=== PATIENT | female | born 1930 | race Caucasian/White ===

== ENCOUNTER 2017-11-06 09:57 | Inpatient (IN) | payer MEDICARE ==
[~2017-11-06] VITALS: Ht 162.6 cm; Wt 54.4 kg
[2017-11-06] MEDS ORDERED: SODIUM CHLORIDE 0.9% 1000ML 1,000 ML IV STA (10:12)
[2017-11-06] MEDS ORDERED: ONDANSETRON HCL INJ 2 MG/ML VIAL IV STA (10:12)
[2017-11-06] MEDS ORDERED: MORPHINE SULFATE 2 MG/ML SYR IV STA (10:12)
--- NOTE | 2017-11-06 11:04 | Diagnostic Imaging Report ---
PROCEDURE: A single AP view of the chest. COMPARISON: None. INDICATIONS: FALL, HIP FX FINDINGS: Lines/tubes: None. Lungs: The lungs are poorly inflated with bibasilar opacities likely representing atelectasis. There is no evidence of pulmonary edema. Pleura: There is no pleural effusion or pneumothorax. Heart and mediastinum: Aortic arch calcifications. The heart and the mediastinum are otherwise unremarkable. Bones: Age-indeterminate compression deformity of a lower thoracic vertebral body. IMPRESSION: 1. No acute cardiopulmonary disease. 2. Age-indeterminate compression deformity of a lower thoracic vertebral body. Dictated by: Eusebio Morales M.D. on 11/06/2017 at 11:07 Electronically approved by: Eusebio Morales M.D. on 11/06/2017 at 11:07
--- NOTE | 2017-11-06 11:06 | Diagnostic Imaging Report ---
PROCEDURE:HIP LEFT 2-3 VW (+/- PELVIS) COMPARISON:None. INDICATIONS:FALL, LEFT HIP FRACTURE FINDINGS: BONES: Angulated intertrochanteric fracture of the left femur. SOFT TISSUES:Negative. OTHER:Vascular calcifications. CONCLUSION: Angulated intertrochanteric fracture of the left femur. Dictated by: Eusebio Morales M.D. on 11/06/2017 at 11:09 Electronically approved by: Eusebio Morales M.D. on 11/06/2017 at 11:09
--- NOTE | 2017-11-06 11:09 | Diagnostic Imaging Report ---
PROCEDURE:FEMUR 2 VIEWS MINIMUM LEFT COMPARISON:None. INDICATIONS:HIP FRACTURE FINDINGS: Angulated comminuted intratrochanteric fracture of the left femur. Evaluation of the distal femur and knee are limited secondary to limited patient mobility. The bones are well-mineralized. The soft-tissues are unremarkable. CONCLUSION: Angulated comminuted intratrochanteric fracture of the left femur. Limited evaluation of the distal femur and knee secondary to limited patient mobility. Recommend correlation with focal point tenderness, and if indicated, dedicated knee radiographs when clinically feasible. Dictated by: Eusebio Morales M.D. on 11/06/2017 at 11:12 Electronically approved by: Eusebio Morales M.D. on 11/06/2017 at 11:12
[2017-11-06 11:20] LABS: BASOPHILS % 0.2 % (0.0-1.0); EOSINOPHILS % 0.1 % (0.0-6.0); HEMATOCRIT 36.7 % (34.2-44.1); HEMOGLOBIN 12.3 g/dL (12.0-16.0); LYMPHOCYTES # (AUTO) 1.1 (1.0-3.2); LYMPHOCYTES % 7.1 % (18.0-39.1); MEAN CORPUSCULAR HGB CONC 33.5 g/dL (31-35); MEAN CORPUSCULAR VOLUME 89.5 fL (81-99); MONOCYTES # (AUTO) 1.8 (0.2-0.8); MONOCYTES % 11.6 % (4.4-11.3); NEUTROPHILS # (AUTO) 12.3 (2.1-6.9); NEUTROPHILS % 80.4 % (38.7-80.0); PLATELET COUNT 285 x10e3/uL (140-360); RED CELL DISTRIBUTION WIDTH 13.3 % (11.7-14.4)
[2017-11-06 11:24] LABS: INR 1.15; PROTHROMBIN TIME 13.8 seconds (11.9-14.5)
[2017-11-06 11:25] LABS: PARTIAL THROMBOPLASTIN TIME 26.3 seconds (23.8-35.5)
[2017-11-06 11:35] LABS: ALANINE AMINOTRANSFERASE 19 IU/L (0-55); ALBUMIN 3.3 g/dL (3.5-5.0); ALBUMIN/GLOBULIN RATIO 0.8 (0.8-2.0); ALKALINE PHOSPHATASE 71 IU/L (40-150); BLOOD UREA NITROGEN 24 mg/dL (7-26); BUN/CREATININE RATIO 32 (6-25); CALCIUM 9.8 mg/dL (8.4-10.2); CARBON DIOXIDE 26 mmol/L (22-29); CHLORIDE 102 mmol/L (98-107); CREATINE KINASE 372 IU/L (29-168); CREATININE, SERUM 0.75 mg/dL (0.57-1.11); EST GLOMERULAR FILTRATION RATE > 60 ML/MIN (60-); GLUCOSE 109 mg/dL (74-118); SODIUM 139 mmol/L (136-145)
[2017-11-06] MEDS ORDERED: MORPHINE SULFATE 2 MG/ML SYR IV PRN (12:00)
[2017-11-06] MEDS ORDERED: SODIUM CHLORIDE FLUSH 10 ML SYR INJ PRN (12:00)
[2017-11-06] MEDS ORDERED: ONDANSETRON HCL INJ 2 MG/ML VIAL IV PRN (12:00)
[2017-11-06] MEDS ORDERED: D3-5050000 UNIT PO (12:20)
[2017-11-06] MEDS ORDERED: AMLODIPINE BESYL5 MG PO (12:20)
[2017-11-06] MEDS ORDERED: DILTIAZEM ER180 MG PO (12:20)
[2017-11-06] MEDS ORDERED: SIMVASTATIN40 MG PO (12:20)
[2017-11-06 12:31] LABS: BILIRUBIN,URINE NEGATIVE (NEGATIVE); CLARITY,URINE TURBID (CLEAR); COLOR,URINE YELLOW (YELLOW); KETONES,URINE NEGATIVE (NEGATIVE); LEUKOCYTE ESTERASE ,URINE 2+ (NEGATIVE); NITRITE,URINE POSITIVE (NEGATIVE); PROTEIN,URINE DIPSTICK 2+ (NEGATIVE); URINE UROBILINOGEN 0.2 mg/dL (0.2 - 1)
[2017-11-06 12:40] LABS: LYMPHOCYTES % (MANUAL) 8 % (19-48); MONOCYTES % (MANUAL) 7 % (3.4-9.0); NEUTROPHILS % (MANUAL) 85 % (40-74)
[2017-11-06 12:41] LABS: PLATELET ESTIMATE ADEQUATE; PLATELET MORPHOLOGY COMMENT NORMAL; RBC MORPHOLOGY COMMENT NORMAL
[2017-11-06 12:45] LABS: WBC,URINE (MAN) >50 /HPF (0-5)
[2017-11-06 12:46] LABS: BACTERIA,URINE FEW /HPF; EPITHELIAL CELLS,URINE FEW /LPF; TRANSITIONAL EPI CELLS,URINE FEW
[2017-11-06 13:39] VITALS: BP 134/65
[2017-11-06 13:40] VITALS: BP 134/65
[2017-11-06 16:20] VITALS: BP 102/55
[2017-11-06] MEDS ORDERED: METOPROLOL TARTRATE INJ 1 MG/ML VIAL IV PRN (18:15)
[2017-11-06] MEDS ORDERED: HYDRALAZINE HCL 20 MG/ML VIAL IV PRN (18:15)
[2017-11-06] MEDS ORDERED: ACETAMINOPHEN 325 MG TAB PO PRN (18:15)
[2017-11-06] MEDS: CEFTRIAXONE SOD 1 GM VIAL IV SCH (19:35)
[2017-11-06 20:00] VITALS: BP 106/60
--- NOTE | 2017-11-06 20:09 | Consultation ---
DATE OF CONSULTATION: November 06, 2017 CHIEF COMPLAINT: Left hip pain. HISTORY OF PRESENT ILLNESS: The patient is an 87-year-old lady who lives alone at home. She was walking in her hallway and tripped over her feet 3 days ago. Her daughter found her later that morning. They called EMS. EMS came and felt that she had strained her hip. They told her to give it some time. She was unable to walk. She went to the doctor the next day. She was sent for x-rays. This took a little time. She was called this morning and told she had a hip fracture. She was brought in by EMS. She has been unable to walk since the time of the initial fall. PAST MEDICAL HISTORY: She describes hypertension and an irregular heart beat. PAST SURGERIES: Include cataracts and an appendectomy. ALLERGIES: NONE. MEDICATIONS: See list. SOCIAL HISTORY: She does not smoke or drink. She walks with either a cane or a walker. She has 2 daughters and a son who live in the area. She is . PHYSICAL EXAMINATION: She is awake, alert and very pleasant. Her left lower extremity is shortened and internally rotated. She has pain with any attempted passive range of motion. Neurovascular exam is normal. There is some swelling but no puncture wounds or abrasions around the left hip. LABORATORY STUDIES: X-rays show an intertrochanteric fracture of her left hip. IMPRESSION: Left hip fracture. PLAN: The findings and options were discussed with the patient and her daughter. She was previously ambulatory. The risks and benefits of surgical stabilization with intramedullary hip screw were explained. The recovery was discussed. The possibility of rehab or group home facility was explored. She states she understands all of this. She consents to proceed with surgery. We will get this on the schedule for tomorrow. Thank you for the consultation. Job#: [id number]
[2017-11-06 20:56] VITALS: BP 106/60
[2017-11-07] VITALS (7 sets, daily range): BP systolic 99–126; BP diastolic 52–60
[2017-11-07 03:04] LABS: BASOPHILS % 0.3 % (0.0-1.0); EOSINOPHILS % 0.1 % (0.0-6.0); HEMATOCRIT 37.8 % (34.2-44.1); HEMOGLOBIN 12.6 g/dL (12.0-16.0); LYMPHOCYTES # (AUTO) 1.2 (1.0-3.2); LYMPHOCYTES % 8.7 % (18.0-39.1); MEAN CORPUSCULAR HEMOGLOBIN 30.2 pg (28-32); MEAN CORPUSCULAR HGB CONC 33.3 g/dL (31-35); MEAN CORPUSCULAR VOLUME 90.6 fL (81-99); MONOCYTES # (AUTO) 1.6 (0.2-0.8); MONOCYTES % 11.5 % (4.4-11.3); NEUTROPHILS # (AUTO) 11.2 (2.1-6.9); NEUTROPHILS % 78.8 % (38.7-80.0); PLATELET COUNT 297 x10e3/uL (140-360); RED BLOOD COUNT 4.17 x10e6/uL (3.6-5.1); RED CELL DISTRIBUTION WIDTH 13.2 % (11.7-14.4)
[2017-11-07 03:27] LABS: ANION GAP 12.2 mmol/L (8-16); BLOOD UREA NITROGEN 26 mg/dL (7-26); BUN/CREATININE RATIO 39 (6-25); CALCIUM 9.4 mg/dL (8.4-10.2); CARBON DIOXIDE 26 mmol/L (22-29); CHLORIDE 105 mmol/L (98-107); CHOL/HDL RATIO 2.6 (3.0-3.6); CHOLESTEROL 143 MD/DL (0-199); CREATININE, SERUM 0.67 mg/dL (0.57-1.11); EST GLOMERULAR FILTRATION RATE > 60 ML/MIN (60-); GLUCOSE 94 mg/dL (74-118); HDL CHOLESTEROL 55 MG/DL (40-60); LDL CHOLESTEROL 77 MG/DL (60-130); MAGNESIUM 1.7 MG/DL (1.3-2.1); POTASSIUM 4.2 mmol/L (3.5-5.1); SODIUM 139 mmol/L (136-145); TRIGLYCERIDES 54 MG/DL (0-149)
[2017-11-07 03:48] LABS: FREE T4 (FREE THYROXINE) 1.01 ng/dL (0.9-1.8); THYROID STIMULATING HORMONE 0.689 uIU/mL (0.350-4.940)
[2017-11-07 03:52] LABS: B-TYPE NATRIURETIC PEPTIDE2 91.4 pg/mL (0-100)
[2017-11-07 04:16] LABS: LYMPHOCYTES % (MANUAL) 13 % (19-48); MONOCYTES % (MANUAL) 7 % (3.4-9.0); NEUTROPHILS % (MANUAL) 80 % (40-74); PLATELET ESTIMATE ADEQUATE; PLATELET MORPHOLOGY COMMENT NORMAL; RBC MORPHOLOGY COMMENT NORMAL
[2017-11-07] MEDS: FAMOTIDINE 20 MG TAB PO SCH ×2 (07:30→16:32)
[2017-11-07] MEDS ORDERED: CEFAZOLIN SOD 2 GM in WATER STERILE 10ML VIAL 10 ML IV ONE (07:45)
[2017-11-07] MEDS: ENOXAPARIN SOD INJ 40 MG/0.4 ML SYR SC SCH (08:29)
[2017-11-07] MEDS ORDERED: MUPIROCIN 2% OINT 22 GM TUBE ONE (11:48)
[2017-11-07] MEDS ORDERED: ACETAMINOPHEN 650 MG SUPP PR PRN (13:15)
[2017-11-07] MEDS ORDERED: ONDANSETRON HCL INJ 2 MG/ML VIAL IV PRN (13:15)
[2017-11-07] MEDS ORDERED: DIPHENHYDRAMINE HCL INJ 50 MG/ML VIAL IM/IV PRN (13:15)
[2017-11-07] MEDS ORDERED: HYDROCODONE/APAP 5MG-325MG TAB PO PRN (13:15)
[2017-11-07] MEDS ORDERED: PROMETHAZINE HCL (IM) 25 MG/ML VIAL INJ PRN (13:15)
[2017-11-07] MEDS ORDERED: ZOLPIDEM TARTRATE 5 MG TAB PO PRN (13:15)
[2017-11-07] MEDS ORDERED: DOCUSATE SODIUM 100 MG CAP PO PRN (13:15)
[2017-11-07] MEDS ORDERED: CEFAZOLIN SOD 1 GM/NS 50ML 50 ML IV SCH (14:00)
[2017-11-07] MEDS: SODIUM CHLORIDE 0.9% 1000ML 1,000 ML IV SCH ×2 (14:36→23:00)
[2017-11-07] MEDS: KETOROLAC TROMETHAMINE 30 MG/ML VIAL IV PRN (14:37)
--- NOTE | 2017-11-07 15:06 | Operative Report ---
DATE OF PROCEDURE: November 07, 2017 IRON WORKER FOREMAN: Jm Maldonado PA-C The patient was brought to the operating room for induction of anesthesia. Throughout this case, my PA's assistance was necessary for retraction of soft tissue and positioning of the extremity. This allows for efficient and technically successful execution of the operation and is considered medically necessary. PREOPERATIVE DIAGNOSIS: Left hip intertrochanteric fracture. POSTOPERATIVE DIAGNOSIS: Left hip intertrochanteric fracture. PROCEDURE: Open reduction and internal fixation left hip with intramedullary hip screw. INDICATIONS: The patient is an 87-year-old lady who fell and sustained a comminuted left intertrochanteric fracture. She is a limited ambulator with either a walker or a cane. The findings and options have been discussed with the patient and her daughters. We plan on surgical fixation. The risks and benefits were explained. She stated she understood and wished to proceed. DESCRIPTION OF PROCEDURE: The patient was brought to the operating room and placed under general anesthetic. She received prophylactic antibiotics. She was positioned on the fracture table in gentle traction. A C-arm image intensifier was used to confirm satisfactory reduction. Her left hip was prepped and draped in a sterile manner. A preoperative time out was performed. A small incision was made proximal to the tip of the greater trochanter. A curved awl was used to place a guide pin down the femoral canal. This was measured at 360 mm. This was over-reamed to 12.5 mm. This created endosteal clatter. A [employer] intramedullary hip screw measuring 11 mm x 360 mm was then placed down the femoral canal. This was locked proximally with a 95 mm lag screw. A derotational screw was placed. Final x-rays showed anatomic reduction and good positioning of the hardware. The wounds were irrigated and closed with subcuticular Vicryl, Mastisol and Steri-Strips. Blood loss was less than 20 mL. At the end of the procedure, all needle and sponge counts were correct. Job#: [id number] EV
[2017-11-07] MEDS ORDERED: DEXAMETHASONE SOD PHOS INJ 4 MG/ML VIAL ONE (16:12)
[2017-11-07] MEDS ORDERED: ONDANSETRON HCL INJ 2 MG/ML VIAL ONE (16:12)
[2017-11-07] MEDS ORDERED: PROPOFOL IV EMULSION 10 MG/ML 20 ML VIAL ONE (16:12)
[2017-11-07] MEDS ORDERED: LIDOCAINE HCL 2% LOCAL INJ 5 ML SDV VIAL INJ ONE (16:12)
[2017-11-07] MEDS ORDERED: ACETAMINOPHEN 1000 MG/100 ML IV ONE (16:12)
[2017-11-07] MEDS ORDERED: SEVOFLURANE INHAL SOLN 250 ML PEN BTL ONE (16:12)
[2017-11-07] MEDS: CELECOXIB 100 MG CAP PO SCH (16:32)
[2017-11-07] MEDS: ASPIRIN 325 MG TAB PO SCH (16:32)
[2017-11-07] MEDS: CEFAZOLIN SOD 1 GM VIAL IV SCH (16:32)
[2017-11-07] MEDS: HYDROCODONE/APAP 7.5MG-325MG 1 EA TAB PO PRN (16:33)
[2017-11-07] MEDS ORDERED: FENTANYL CITRATE/PF 100MCG/2 ML INJ ONE (17:54)
[2017-11-07] MEDS: CEFTRIAXONE SOD 1 GM VIAL IV SCH (18:11)
[2017-11-08] VITALS (7 sets, daily range): BP systolic 106–135; BP diastolic 57–62
[2017-11-08] MEDS: CEFAZOLIN SOD 1 GM VIAL IV SCH ×2 (00:53→09:26)
[2017-11-08 03:11] LABS: BASOPHILS % 0.1 % (0.0-1.0); HEMOGLOBIN 10.7 g/dL (12.0-16.0); LYMPHOCYTES # (AUTO) 0.7 (1.0-3.2); LYMPHOCYTES % 4.2 % (18.0-39.1); MEAN CORPUSCULAR HEMOGLOBIN 30.3 pg (28-32); MEAN CORPUSCULAR HGB CONC 33.4 g/dL (31-35); MEAN CORPUSCULAR VOLUME 90.7 fL (81-99); MONOCYTES # (AUTO) 1.2 (0.2-0.8); MONOCYTES % 7.4 % (4.4-11.3); NEUTROPHILS # (AUTO) 14.7 (2.1-6.9); NEUTROPHILS % 87.8 % (38.7-80.0); PLATELET COUNT 272 x10e3/uL (140-360); RED BLOOD COUNT 3.53 x10e6/uL (3.6-5.1); RED CELL DISTRIBUTION WIDTH 13.2 % (11.7-14.4)
[2017-11-08 03:28] LABS: ANION GAP 12.2 mmol/L (8-16); BLOOD UREA NITROGEN 31 mg/dL (7-26); BUN/CREATININE RATIO 46 (6-25); CALCIUM 9.2 mg/dL (8.4-10.2); CARBON DIOXIDE 25 mmol/L (22-29); CHLORIDE 107 mmol/L (98-107); CREATININE, SERUM 0.68 mg/dL (0.57-1.11); EST GLOMERULAR FILTRATION RATE > 60 ML/MIN (60-); GLUCOSE 106 mg/dL (74-118); MAGNESIUM 1.6 MG/DL (1.3-2.1); POTASSIUM 4.2 mmol/L (3.5-5.1); SODIUM 140 mmol/L (136-145)
[2017-11-08] MEDS: KETOROLAC TROMETHAMINE 30 MG/ML VIAL IV PRN (06:00)
[2017-11-08] MEDS: FAMOTIDINE 20 MG TAB PO SCH ×2 (09:26→17:46)
[2017-11-08] MEDS: CELECOXIB 100 MG CAP PO SCH ×2 (09:26→17:46)
[2017-11-08] MEDS: ASPIRIN 325 MG TAB PO SCH ×2 (09:26→17:46)
[2017-11-08] MEDS: ENOXAPARIN SOD INJ 40 MG/0.4 ML SYR SC SCH (09:26)
[2017-11-08] MEDS: HYDROCODONE/APAP 7.5MG-325MG 1 EA TAB PO PRN (09:36)
[2017-11-08] MEDS ORDERED: ACETAMINOPHEN 1000 MG/100 ML IV PRN (13:15)
[2017-11-08] MEDS: CEFTRIAXONE SOD 1 GM VIAL IV SCH (17:46)
[2017-11-09] VITALS (8 sets, daily range): BP systolic 103–139; BP diastolic 54–66
[2017-11-09 03:36] LABS: BASOPHILS % 0.3 % (0.0-1.0); EOSINOPHILS # (AUTO) 0.4 (0.0-0.4); HEMATOCRIT 32.7 % (34.2-44.1); HEMOGLOBIN 10.9 g/dL (12.0-16.0); LYMPHOCYTES # (AUTO) 1.5 (1.0-3.2); LYMPHOCYTES % 12.1 % (18.0-39.1); MEAN CORPUSCULAR HEMOGLOBIN 29.8 pg (28-32); MEAN CORPUSCULAR HGB CONC 33.3 g/dL (31-35); MEAN CORPUSCULAR VOLUME 89.3 fL (81-99); MONOCYTES # (AUTO) 1.1 (0.2-0.8); MONOCYTES % 8.8 % (4.4-11.3); NEUTROPHILS % 75.1 % (38.7-80.0); PLATELET COUNT 286 x10e3/uL (140-360); RED BLOOD COUNT 3.66 x10e6/uL (3.6-5.1)
[2017-11-09 04:46] LABS: ANION GAP 11.6 mmol/L (8-16); BLOOD UREA NITROGEN 24 mg/dL (7-26); BUN/CREATININE RATIO 43 (6-25); CALCIUM 8.6 mg/dL (8.4-10.2); CARBON DIOXIDE 25 mmol/L (22-29); CHLORIDE 106 mmol/L (98-107); CREATININE, SERUM 0.56 mg/dL (0.57-1.11); EST GLOMERULAR FILTRATION RATE > 60 ML/MIN (60-); GLUCOSE 89 mg/dL (74-118); MAGNESIUM 1.5 MG/DL (1.3-2.1); POTASSIUM 3.6 mmol/L (3.5-5.1); SODIUM 139 mmol/L (136-145)
[2017-11-09] MEDS: FAMOTIDINE 20 MG TAB PO SCH ×2 (07:48→17:04)
[2017-11-09] MEDS: ENOXAPARIN SOD INJ 40 MG/0.4 ML SYR SC SCH (08:04)
[2017-11-09] MEDS: ASPIRIN 325 MG TAB PO SCH ×2 (08:04→17:04)
[2017-11-09] MEDS: CELECOXIB 100 MG CAP PO SCH ×2 (08:04→17:04)
[2017-11-09] MEDS: FERROUS SULFATE 325 MG TAB PO SCH ×2 (08:43→17:04)
[2017-11-09] MEDS: ASCORBIC ACID 500 MG TAB PO SCH ×2 (08:46→17:04)
[2017-11-09] MEDS: CEFTRIAXONE SOD 1 GM VIAL IV SCH (18:10)
[2017-11-10] VITALS: BP 131/58
[2017-11-10 03:41] LABS: BASOPHILS # (AUTO) 0.1 (0.0-0.1); BASOPHILS % 0.5 % (0.0-1.0); EOSINOPHILS # (AUTO) 0.6 (0.0-0.4); EOSINOPHILS % 6.3 % (0.0-6.0); HEMATOCRIT 35.5 % (34.2-44.1); HEMOGLOBIN 11.8 g/dL (12.0-16.0); LYMPHOCYTES # (AUTO) 1.8 (1.0-3.2); MEAN CORPUSCULAR HEMOGLOBIN 29.6 pg (28-32); MEAN CORPUSCULAR HGB CONC 33.2 g/dL (31-35); MEAN CORPUSCULAR VOLUME 89.2 fL (81-99); MONOCYTES # (AUTO) 0.9 (0.2-0.8); MONOCYTES % 8.5 % (4.4-11.3); NEUTROPHILS # (AUTO) 6.6 (2.1-6.9); NEUTROPHILS % 65.6 % (38.7-80.0); PLATELET COUNT 276 x10e3/uL (140-360); RED BLOOD COUNT 3.98 x10e6/uL (3.6-5.1)
[2017-11-10 04:00] VITALS: BP 137/69
[2017-11-10 04:02] LABS: ANION GAP 10.5 mmol/L (8-16); BLOOD UREA NITROGEN 14 mg/dL (7-26); BUN/CREATININE RATIO 26 (6-25); CALCIUM 8.9 mg/dL (8.4-10.2); CARBON DIOXIDE 28 mmol/L (22-29); CHLORIDE 103 mmol/L (98-107); CREATININE, SERUM 0.53 mg/dL (0.57-1.11); EST GLOMERULAR FILTRATION RATE > 60 ML/MIN (60-); GLUCOSE 89 mg/dL (74-118); MAGNESIUM 1.6 MG/DL (1.3-2.1); POTASSIUM 3.5 mmol/L (3.5-5.1); SODIUM 138 mmol/L (136-145)
[2017-11-10] MEDS: FAMOTIDINE 20 MG TAB PO SCH ×2 (08:30→16:35)
[2017-11-10] MEDS: ENOXAPARIN SOD INJ 40 MG/0.4 ML SYR SC SCH (08:35)
[2017-11-10] MEDS: ASPIRIN 325 MG TAB PO SCH ×2 (08:35→16:45)
[2017-11-10] MEDS: ASCORBIC ACID 500 MG TAB PO SCH ×2 (08:35→16:46)
[2017-11-10] MEDS: FERROUS SULFATE 325 MG TAB PO SCH ×2 (08:35→16:45)
[2017-11-10] MEDS: CELECOXIB 100 MG CAP PO SCH ×2 (08:35→16:45)
[2017-11-10 10:47] VITALS: BP 137/69
[2017-11-10 16:41] VITALS: BP 108/58
[2017-11-10] MEDS: CEFTRIAXONE SOD 1 GM VIAL IV SCH (18:05)
[2017-11-10 20:00] VITALS: BP 111/53
[2017-11-10 22:54] VITALS: BP 126/58
[2017-11-11] VITALS (7 sets, daily range): BP systolic 111–174; BP diastolic 57–91
[2017-11-11 04:05] LABS: BASOPHILS # (AUTO) 0.1 (0.0-0.1); BASOPHILS % 0.6 % (0.0-1.0); EOSINOPHILS # (AUTO) 0.7 (0.0-0.4); EOSINOPHILS % 7.8 % (0.0-6.0); HEMATOCRIT 33.5 % (34.2-44.1); HEMOGLOBIN 11.2 g/dL (12.0-16.0); LYMPHOCYTES % 21.9 % (18.0-39.1); MEAN CORPUSCULAR HEMOGLOBIN 29.9 pg (28-32); MEAN CORPUSCULAR HGB CONC 33.4 g/dL (31-35); MEAN CORPUSCULAR VOLUME 89.3 fL (81-99); MONOCYTES # (AUTO) 0.8 (0.2-0.8); MONOCYTES % 9.3 % (4.4-11.3); NEUTROPHILS # (AUTO) 5.3 (2.1-6.9); NEUTROPHILS % 58.7 % (38.7-80.0); PLATELET COUNT 329 x10e3/uL (140-360); RED BLOOD COUNT 3.75 x10e6/uL (3.6-5.1); RED CELL DISTRIBUTION WIDTH 13.2 % (11.7-14.4)
[2017-11-11 04:28] LABS: ANION GAP 11.3 mmol/L (8-16); BLOOD UREA NITROGEN 16 mg/dL (7-26); BUN/CREATININE RATIO 29 (6-25); CALCIUM 8.4 mg/dL (8.4-10.2); CARBON DIOXIDE 28 mmol/L (22-29); CHLORIDE 107 mmol/L (98-107); CREATININE, SERUM 0.55 mg/dL (0.57-1.11); EST GLOMERULAR FILTRATION RATE > 60 ML/MIN (60-); GLUCOSE 95 mg/dL (74-118); MAGNESIUM 1.8 MG/DL (1.3-2.1); POTASSIUM 3.3 mmol/L (3.5-5.1); SODIUM 143 mmol/L (136-145)
[2017-11-11] MEDS ORDERED: POTASSIUM CHLORIDE 20 MEQ TAB CR PO STA (08:00)
[2017-11-11] MEDS ORDERED: NON-FORMULARY MEDICATION (Diltiazem Hcl (Diltiazem Er) 180 MG) PO SCH (09:00)
[2017-11-11] MEDS: FERROUS SULFATE 325 MG TAB PO SCH ×2 (09:04→17:12)
[2017-11-11] MEDS: FAMOTIDINE 20 MG TAB PO SCH ×2 (09:04→17:06)
[2017-11-11] MEDS: AMLODIPINE BESYLATE 5 MG TAB PO SCH ×2 (09:05→17:12)
[2017-11-11] MEDS: ASPIRIN 325 MG TAB PO SCH ×2 (09:05→17:12)
[2017-11-11] MEDS: DILTIAZEM HCL 180 MG CAP CD PO SCH (09:05)
[2017-11-11] MEDS: ASCORBIC ACID 500 MG TAB PO SCH ×2 (09:06→17:12)
[2017-11-11] MEDS: ENOXAPARIN SOD INJ 40 MG/0.4 ML SYR SC SCH (09:06)
[2017-11-11] MEDS: CELECOXIB 200 MG CAP PO SCH (17:12)
[2017-11-11] MEDS: CEFTRIAXONE SOD 1 GM VIAL IV SCH (17:20)
[2017-11-11] MEDS ORDERED: SIMVASTATIN 40 MG TAB PO SCH (21:00)
[2017-11-12] VITALS: BP 110/79
[2017-11-12 03:52] LABS: BASOPHILS # (AUTO) 0.1 (0.0-0.1); BASOPHILS % 1.2 % (0.0-1.0); EOSINOPHILS # (AUTO) 0.9 (0.0-0.4); EOSINOPHILS % 8.6 % (0.0-6.0); HEMATOCRIT 38.6 % (34.2-44.1); HEMOGLOBIN 12.1 g/dL (12.0-16.0); LYMPHOCYTES # (AUTO) 2.5 (1.0-3.2); LYMPHOCYTES % 23.4 % (18.0-39.1); MEAN CORPUSCULAR HEMOGLOBIN 29.7 pg (28-32); MEAN CORPUSCULAR HGB CONC 31.3 g/dL (31-35); MEAN CORPUSCULAR VOLUME 94.8 fL (81-99); NEUTROPHILS # (AUTO) 5.9 (2.1-6.9); NEUTROPHILS % 55.5 % (38.7-80.0); PLATELET COUNT 369 x10e3/uL (140-360); RED BLOOD COUNT 4.07 x10e6/uL (3.6-5.1); RED CELL DISTRIBUTION WIDTH 13.6 % (11.7-14.4)
[2017-11-12 04:00] VITALS: BP 124/56
[2017-11-12 04:01] LABS: ANION GAP 13.2 mmol/L (8-16); BLOOD UREA NITROGEN 18 mg/dL (7-26); BUN/CREATININE RATIO 27 (6-25); CALCIUM 8.9 mg/dL (8.4-10.2); CARBON DIOXIDE 27 mmol/L (22-29); CHLORIDE 106 mmol/L (98-107); CREATININE, SERUM 0.66 mg/dL (0.57-1.11); EST GLOMERULAR FILTRATION RATE > 60 ML/MIN (60-); GLUCOSE 93 mg/dL (74-118); MAGNESIUM 1.8 MG/DL (1.3-2.1); POTASSIUM 4.2 mmol/L (3.5-5.1); SODIUM 142 mmol/L (136-145)
[2017-11-12 05:51] LABS: EOSINOPHILS % (MANUAL) 5 % (0-7); LYMPHOCYTES % (MANUAL) 23 % (19-48); MONOCYTES % (MANUAL) 3 % (3.4-9.0); MYELOCYTES % (MANUAL) 1 % (0-0); NEUTROPHILS % (MANUAL) 68 % (40-74); PLATELET ESTIMATE SLIGHTLY INCREASED; RBC MORPHOLOGY COMMENT NORMAL
[2017-11-12 07:58] VITALS: BP 134/64
[2017-11-12] MEDS: CELECOXIB 200 MG CAP PO SCH ×2 (08:25→16:51)
[2017-11-12] MEDS: FERROUS SULFATE 325 MG TAB PO SCH ×2 (08:25→16:51)
[2017-11-12] MEDS: FAMOTIDINE 20 MG TAB PO SCH ×2 (08:25→16:10)
[2017-11-12] MEDS: ENOXAPARIN SOD INJ 40 MG/0.4 ML SYR SC SCH (08:26)
[2017-11-12] MEDS: ASPIRIN 325 MG TAB PO SCH ×2 (08:26→16:51)
[2017-11-12] MEDS: ASCORBIC ACID 500 MG TAB PO SCH ×2 (08:26→16:51)
[2017-11-12] MEDS: DILTIAZEM HCL 180 MG CAP CD PO SCH (08:26)
[2017-11-12] MEDS: AMLODIPINE BESYLATE 5 MG TAB PO SCH ×2 (08:26→16:51)
[2017-11-12 09:29] VITALS: BP 134/64
[2017-11-12 12:02] VITALS: BP 124/62
[2017-11-12] MEDS ORDERED: FERROUS SULFAT325 MG PO (16:19)
[2017-11-12] MEDS ORDERED: COLACE100 M1 PO (16:19)
[2017-11-12] MEDS ORDERED: ASCORBIC ACID500 MG PO (16:19)
[2017-11-12] MEDS ORDERED: Celecoxib PO (16:19)
[2017-11-12] MEDS ORDERED: AMBIEN5 MG PO (16:19)
[2017-11-12 16:35] VITALS: BP 112/58
[2017-11-12] MEDS: CEFTRIAXONE SOD 1 GM VIAL IV SCH (16:51)
--- NOTE | 2017-11-12 16:55 | Discharge Summary ---
ADMISSION DIAGNOSES 1. Left femur fracture status post fall. 2. Urinary tract infection. 3. Frequent falls. 4. Heart arrhythmia. DISCHARGE DIAGNOSES 1. Left femur fracture status post fall. 2. Urinary tract infection. 3. Frequent falls. 4. Heart arrhythmia. 5. Hypokalemia. 6. Tachycardia. HISTORY: Patient has a history of hypertension, hyperlipidemia and heart arrhythmia, surgical history of appendectomy, bilateral cataract surgery and bilateral breast lumpectomy. HOSPITAL COURSE: An 87-year-old female says her knees gave out and she fell on Saturday. She was unable to get up until her daughter came over and helped her. She denies dizziness and confusion. The EMS were called but did not transport to the hospital. On Saturday the pain and weakness increased. Her daughter then arranged transport to the hospital. She admits to frequent falling. On admission patient had a chest x-ray which showed no acute disease, hip x-ray that showed an intertrochanteric fracture of the left femur. Patient also had a urine culture that came back positive for E. coli. Patient started on Rocephin. On November 07, 2017, patient had an ORIF of the left hip. Due to frequent falls, patient and her daughter wanted transfer to a SNF upon discharge. Patient recovered well from surgery, working well with physical therapy. Pain is controlled with p.o. medications. Patient will discharge to [facility] for further PT. On day of discharge, WBC 10.68, hemoglobin 12.1, hematocrit 38.6, platelet of 369. Sodium 142, potassium 4.2, GFR of over 60, creatinine of 0.66. Vital signs stable, patient afebrile. Both patient and daughter understand discharge plan and agree. Dictated by: Nancy Lopez NP AMY MCLEOD MD Job#: [id number] KARISHMA
== END 2017-11-12 18:27 | disposition other institution (70) | DRG 481 ==
LOC: ER 09:57 → ERHOLD 12:23 → MED/SURG 13:01
PROVIDERS: ADMIT Internal Medicine; ATTEND Internal Medicine
PROC: BQ14ZZZ Fluoroscopy of Left Femur (ICD-10-PCS; 2017-11-07)
PROC: 0QS706Z Reposition Left Upper Femur with Intramedullary Internal Fixation Device, Open Approach (ICD-10-PCS; principal; 2017-11-07 12:00)
DX: S72.142A Displaced intertrochanteric fracture of left femur, initial encounter for closed fracture (principal); N39.0 Urinary tract infection, site not specified; I49.9 Cardiac arrhythmia, unspecified; Z91.81 History of falling; E87.6 Hypokalemia; R00.0 Tachycardia, unspecified; B96.20 Unspecified Escherichia coli [E. coli] as the cause of diseases classified elsewhere; K21.9 Gastro-esophageal reflux disease without esophagitis; W19.XXXA Unspecified fall, initial encounter
CPT/HCPCS: 36415; 51700; 71045; 76000; 80048; 80053; 80061; 81001; 82550; 82553; 82948; 83036; 83605; 83735; 83880; 84439; 84443; 84484; 85025; 85610; 85730; 86850; 86900; 87086; 87186; 93005; 97139; 99284; C1713; J0690; J0696; J1100; J1650; J1885; J2001; J2270; J2405; J7030

== ENCOUNTER 2018-01-07 13:30 | Emergency (ER) | payer MEDICARE ==
[~2018-01-07] VITALS: Ht 162.6 cm; Wt 54.4 kg
[~2018-01-07 13:30] MED LIST: AMBIEN5 MG PO; AMLODIPINE BESYL5 MG PO; ASCORBIC ACID500 MG PO; COLACE100 M1 PO; Celecoxib PO; D3-5050000 UNIT PO; DILTIAZEM ER180 MG PO; FERROUS SULFAT325 MG PO; SIMVASTATIN40 MG PO
[2018-01-07 14:20] LABS: BASOPHILS % 0.4 % (0.0-1.0); EOSINOPHILS # (AUTO) 0.1 (0.0-0.4); EOSINOPHILS % 0.9 % (0.0-6.0); HEMATOCRIT 36.1 % (34.2-44.1); HEMOGLOBIN 11.9 g/dL (12.0-16.0); LYMPHOCYTES # (AUTO) 1.2 (1.0-3.2); LYMPHOCYTES % 12.4 % (18.0-39.1); MEAN CORPUSCULAR HEMOGLOBIN 30.4 pg (28-32); MEAN CORPUSCULAR VOLUME 92.1 fL (81-99); MONOCYTES % 11.1 % (4.4-11.3); PLATELET COUNT 276 x10e3/uL (140-360); RED BLOOD COUNT 3.92 x10e6/uL (3.6-5.1); RED CELL DISTRIBUTION WIDTH 13.5 % (11.7-14.4)
[2018-01-07 14:36] LABS: INR 1.16; PROTHROMBIN TIME 13.9 seconds (11.9-14.5)
[2018-01-07 14:37] LABS: PARTIAL THROMBOPLASTIN TIME 35.1 seconds (23.8-35.5)
[2018-01-07 14:45] LABS: ALANINE AMINOTRANSFERASE 13 IU/L (0-55); ALBUMIN 3.2 g/dL (3.5-5.0); ALBUMIN/GLOBULIN RATIO 0.8 (0.8-2.0); ALKALINE PHOSPHATASE 83 IU/L (40-150); ANION GAP 16.3 mmol/L (8-16); BLOOD UREA NITROGEN 19 mg/dL (7-26); BUN/CREATININE RATIO 25 (6-25); CALCIUM 9.4 mg/dL (8.4-10.2); CARBON DIOXIDE 23 mmol/L (22-29); CHLORIDE 103 mmol/L (98-107); CREATININE, SERUM 0.75 mg/dL (0.57-1.11); EST GLOMERULAR FILTRATION RATE > 60 ML/MIN (60-); GLUCOSE 152 mg/dL (74-118); POTASSIUM 3.3 mmol/L (3.5-5.1); SODIUM 139 mmol/L (136-145)
[2018-01-07] MEDS ORDERED: ONDANSETRON HCL INJ 2 MG/ML VIAL IV STA (17:04)
[2018-01-07] MEDS ORDERED: MORPHINE SULFATE 2 MG/ML SYR IV STA (17:04)
--- OUTSIDE RECORDS SUMMARY | 2018-02-20 03:34 | XMS REPORT | Continuity of Care Document ---
Author Author [facility] Organization [facility] Address [address] [place] [address] Phone Unavailable Care Team Providers Care Staff Educator Name Role Phone AMY TOLEDO DO PCP Advance Directives Directive Response Recorded Date/Time Does the patient have an advance directive? Yes 11/06/17 2:25pm If yes, is advance directive on file with [facility]? No 11/06/17 2:25pm If not on file with [facility] will patient provide a copy? Yes 11/06/17 2:25pm Do you have a Directive to Physician? No 11/06/17 11:49am Do you have a Medical Power of Boat Dock Operator? No 11/06/17 11:49am Do you have an out of hospital Do Not Resuscitate Order? No 11/06/17 11:49am Do you have any special needs we should be aware of? No 11/06/17 11:49am Do you have a support person here with you today? Yes 11/06/17 11:49am Did patient receive Notice of Privacy Practices? Yes 11/06/17 11:49am Did patient receive patient rights and responsibilities? Yes 11/06/17 11:49am Problems Medical Problem Onset Date Status Femur fracture, left Unknown Medications Current Home Medications Medication Dose Units Route Directions Days Qty Instructions Start Date Amlodipine Besylate 5 Mg Tablet 5 Mg Oral Twice A Day 30 Tab Ascorbic Acid 500 Mg Tablet 500 Mg Oral Twice A Day 30 Days Celecoxib 200 Mg Cap 200 Mg Oral Twice Daily With Meals 30 Days Cholecalciferol (Vitamin D3) (D3-50) 50,000 Unit Capsule 1 Cap Oral Daily Diltiazem Hcl (Diltiazem Er) 180 Mg Cap.er.deg 180 Mg Oral Daily Docusate Sodium (Colace) 100 Mg Capsule 100 Mg Oral Twice A Day as needed for Constipation 30 Days 11/12/17 Ferrous Sulfate 325 Mg Tablet 325 Mg Oral Twice Daily With Meals 30 Days 11/12/17 Simvastatin 40 Mg Tablet 40 Mg Oral Today At 9:00PM 30 Tab Zolpidem Tartrate (Ambien) 5 Mg Tablet 5 Mg Oral Bedtime as needed for Insomnia 30 Days 11/12/17 Social History Social History Problem Response Recorded Date/Time Onset Date Status Hx Psychiatric Problems No 11/06/2017 2:25pm Not Applicable Not Applicable Hx Eating Disorder No 11/06/2017 2:25pm Not Applicable Not Applicable Hx Substance Use Disorder No 11/06/2017 2:25pm Not Applicable Not Applicable Hx Depression No 11/06/2017 2:25pm Not Applicable Not Applicable Hx Alcohol Use No 11/06/2017 2:25pm Not Applicable Not Applicable Hx Substance Use Treatment No 11/06/2017 2:25pm Not Applicable Not Applicable Hx Physical Abuse No 11/06/2017 2:25pm Not Applicable Not Applicable Smoking Status Start Date Stop Date Never Smoker Hospital Discharge Instructions No hospital discharge instruction information available. Plan of Care Discharge Date 11/12/17 6:27pm Disposition TRANS TO OTHER [facility] FAC[facility] Instructions/Education Provided Stitches and April Care Post Operative Pain Prescriptions See Medication Section Additional Instructions/Education f/u with ortho in 2 weeks f/u with PCP in 1-2 weeks Functional Status Query Response Date Recorded FUNCTIONAL STATUS . November 07, 2017 5:43pm Assistive Devices Straight Cane November 06, 2017 1:40pm Ambulation Ability Minimum Assistance November 06, 2017 1:40pm Toileting Ability Maximum Assistance November 11, 2017 8:52am Allergies, Adverse Reactions, Alerts No known allergies. Immunizations No immunization information available. Vital Signs Acute Vital Signs Vital Response Date/Time Temperature (Fahrenheit) 97.3 degrees F (97.6 - 99.5) 11/12/2017 4:35pm Pulse Pulse Rate (adult) 90 bpm (60 - 90) 11/12/2017 4:35pm Respiratory Rate 18 bpm (12 - 24) 11/12/2017 4:35pm Blood Pressure 112/58 mm Hg 11/12/2017 4:35pm Height 5 ft 4 in 11/06/2017 10:11am Weight 120 lb 11/06/2017 10:11am Body Mass Index 20.6 kg/m^2 11/06/2017 10:11am Results Laboratory Results Test Name Result Units Flags Reference Collection Date/Time Result Date/ Time Comments White Blood Count 10.68 x10e3/uL 4.8-10.8 11/12/2017 3:2011/12/2017 4:04am Red Blood Count 4.07 x10e6/uL 3.6-5.1 11/12/2017 3:11/12/2017 4: 04am Hemoglobin 12.1 g/dL 12.0-16.0 11/12/2017 3:11/12/2017 4:04am Hematocrit 38.6 % 34.2-44.1 11/12/2017 3:11/12/2017 4:04am Mean Corpuscular Volume 94.8 fL # 81-99 11/12/2017 3:11/12/2017 4: 04am Mean Corpuscular Hemoglobin 29.7 pg 28-32 11/12/2017 3:11/12/2017 4:04am Mean Corpuscular Hemoglobin Concent 31.3 g/dL 31-35 11/12/2017 3:11/12/2017 4:04am Red Cell Distribution Width 13.6 % 11.7-14.4 11/12/2017 3:2017 4:04am Platelet Count 369 x10e3/uL H 140-360 11/12/2017 3:2011/12/2017 4: 04am Neutrophils (%) (Auto) 55.5 % 38.7-80.0 11/12/2017 3:2011/12/2017 4: 04am Lymphocytes (%) (Auto) 23.4 % 18.0-39.1 11/12/2017 3:11/12/2017 4: 04am Monocytes (%) (Auto) 9.0 % 4.4-11.3 11/12/2017 3:11/12/2017 4: 04am Eosinophils (%) (Auto) 8.6 % H 0.0-6.0 11/12/2017 3:11/12/2017 4: 04am Basophils (%) (Auto) 1.2 % H 0.0-1.0 11/12/2017 3:11/12/2017 4: 04am IM GRANULOCYTES % 2.3 % H 0.0-1.0 11/12/2017 3:11/12/2017 4:04am Neutrophils # (Auto) 5.9 2.1-6.9 11/12/2017 3:11/12/2017 4:04am Lymphocytes # (Auto) 2.5 1.0-3.2 11/12/2017 3:11/12/2017 4:04am Monocytes # (Auto) 1.0 H 0.2-0.8 11/12/2017 3:11/12/2017 4:04am Eosinophils # (Auto) 0.9 H 0.0-0.4 11/12/2017 3:11/12/2017 4: 04am Basophils # (Auto) 0.1 0.0-0.1 11/12/2017 3:11/12/2017 4:04am Absolute Immature Granulocyte (auto 0.25 x10e3/uL H 0-0.1 11/12/2017 3: 11/12/2017 4:04am Differential Total Cells Counted 100 11/12/2017 3:11/12/2017 5 :51am Neutrophils % (Manual) 68 % 40-74 11/12/2017 3:11/12/2017 5:51am Lymphocytes % (Manual) 23 % 19-48 11/12/2017 3:11/12/2017 5:51am Monocytes % (Manual) 3 % L 3.4-9.0 11/12/2017 3:11/12/2017 5:51am Eosinophils % (Manual) 5 % 0-7 11/12/2017 3:20am 11/12/2017 5:51am Myelocytes % 1 % H 0-0 11/12/2017 3:20am 11/12/2017 5:51am Platelet Estimate SLIGHTLY INCREASED 11/12/2017 3:20am 11/12/2017 5 :51am Platelet Morphology Comment NORMAL 11/07/2017 3:00am 11/07/2017 4: 16am Red Cell Morphology Comment NORMAL 11/12/2017 3:20am 11/12/2017 5: 51am Prothrombin Time 13.8 seconds 11.9-14.5 11/06/2017 10:12am 11/06/2017 11:28am Prothromb Time International Ratio 1.15 11/06/2017 10:12am 2017 11:28am Oral Anticoagulant Therapy INR Values: 1. Low Intensity Therapy 1.5 - 2.0 2. Moderate Intensity Therapy 2.0 - 3.0 3. High Intensity Therapy(1) 2.5 - 3.5 4. High Intensity Therapy(2) 3.0 - 4.0 5. Panic Value INR > 5.0 Activated Partial Thromboplast Time 26.3 seconds 23.8-35.5 11/06/2017 10 :12am 11/06/2017 11:28am Urine Color YELLOW YELLOW 11/06/2017 12:15pm 11/06/2017 12:31pm Urine Clarity TURBID H CLEAR 11/06/2017 12:15pm 11/06/2017 12:31pm Urine Specific [place] 1.020 1.010-1.025 11/06/2017 12:15pm 2017 12:31pm Urine pH 7 5 - 7 11/06/2017 12:15pm 11/06/2017 12:31pm Urine Leukocyte Esterase 2+ H NEGATIVE 11/06/2017 12:15pm 11/06/2017 12:31pm Urine Nitrite POSITIVE H NEGATIVE 11/06/2017 12:15pm 11/06/2017 12: 31pm Urine Protein 2+ H NEGATIVE 11/06/2017 12:15pm 11/06/2017 12:31pm Urine Glucose (UA) NEGATIVE NEGATIVE 11/06/2017 12:15pm 11/06/2017 12 :31pm Urine Ketones NEGATIVE NEGATIVE 11/06/2017 12:15pm 11/06/2017 12: 31pm Urine Urobilinogen 0.2 mg/dL 0.2 - 1 11/06/2017 12:15pm 11/06/2017 12: 31pm Urine Bilirubin NEGATIVE NEGATIVE 11/06/2017 12:15pm 11/06/2017 12: 31pm Urine Blood 2+ H NEGATIVE 11/06/2017 12:15pm 11/06/2017 12:31pm Urine WBC >50 /HPF H 0-5 11/06/2017 12:15pm 11/06/2017 12:46pm Urine RBC NONE /HPF 0-5 11/06/2017 12:15pm 11/06/2017 12:46pm Urine Bacteria FEW /HPF NONE 11/06/2017 12:15pm 11/06/2017 12:46pm Urine Epithelial Cells FEW /LPF NONE 11/06/2017 12:15pm 11/06/2017 12: 46pm Urine Transitional Epithelial Cells FEW H NONE 11/06/2017 12:15pm 12:46pm Sodium Level 142 mmol/L 136-145 11/12/2017 3:20am 11/12/2017 4:04am Potassium Level 4.2 mmol/L # 3.5-5.1 11/12/2017 3:2011/12/2017 4:04am Chloride Level 106 mmol/L 98-107 11/12/2017 3:2011/12/2017 4:04am Carbon Dioxide Level 27 mmol/L -11/12/2017 3:2011/12/2017 4: 04am Anion Gap 13.2 mmol/L 8-11/12/2017 3:2011/12/2017 4:04am Blood Urea Nitrogen 18 mg/dL -11/12/2017 3:2011/12/2017 4:04am Creatinine 0.66 mg/dL 0.57-1.11 11/12/2017 3:2011/12/2017 4:04am BUN/Creatinine Ratio 27 H 6-11/12/2017 3:2011/12/2017 4:04am Estimat Glomerular Filtration Rate > 60 ML/MIN 60- 11/12/2017 3:20am 4:04am Ranges were taken from the National Kidney Disease Education Program and the National Kid[employer] Foundation literature. Reference ranges: 60 or greater: Normal 16-59 (for 3 consecutive months): Chronic kidney disease 15 or less: Kidney failure Glucose Level 93 mg/dL 74-118 11/12/2017 3:2011/12/2017 4:04am Calcium Level 8.9 mg/dL 8.4-10.2 11/12/2017 3:2011/12/2017 4:04am Bedside Glucose 100 mg/dL 70-120 11/08/2017 7:0211/08/2017 8:11am Meter ID: [id number] Hemoglobin A1c Percent 5.0 % 4.0-7.0 11/07/2017 3:0011/07/2017 4: 18am Lactic Acid Level 10.4 MG/DL 4.5-19.8 11/06/2017 10:1211/06/2017 11: 28am Magnesium Level 1.8 MG/DL 1.3-2.1 11/12/2017 3:2011/12/2017 4:04am Total Bilirubin 1.5 mg/dL H 0.2-1.2 11/06/2017 10:11/06/2017 11: 37am Aspartate Amino Transf (AST/SGOT) 29 IU/L 5-34 11/06/2017 10:1211/06 11:37am Alanine Aminotransferase (ALT/SGPT) 19 IU/L 0-55 11/06/2017 10:12 11:37am Total Protein 7.5 g/dL 6.5-8.1 11/06/2017 10:1211/06/2017 11:37am Albumin 3.3 g/dL L 3.5-5.0 11/06/2017 10:1211/06/2017 11:37am Globulin 4.2 g/dL H 2.3-3.5 11/06/2017 10:1211/06/2017 11:37am Albumin/Globulin Ratio 0.8 0.8-2.0 11/06/2017 10:1211/06/2017 11: 37am Alkaline Phosphatase 71 IU/L 40-150 11/06/2017 10:1211/06/2017 11: 37am Triglycerides Level 54 MG/DL 0-149 11/07/2017 3:0011/07/2017 3:29am Cholesterol Level 143 MD/DL 0-199 11/07/2017 3:00am 11/07/2017 3:29am Less than 200 mg/dL Low Risk 201 - 239 mg/dL Borderline Risk 240 mg/dl and greater High Risk LDL Cholesterol 77 MG/DL 60-130 11/07/2017 3:00am 11/07/2017 3:29am HDL Cholesterol 55 MG/DL 40-60 11/07/2017 3:00am 11/07/2017 3:29am Cholesterol/HDL Ratio 2.6 L 3.0-3.6 11/07/2017 3:00am 11/07/2017 3: 29am B-Type Natriuretic Peptide 91.4 pg/mL 0-100 11/07/2017 3:00am 2017 3:55am Creatine Kinase 372 IU/L H 29-168 11/06/2017 10:12am 11/06/2017 11:37am Creatine Kinase MB 2.60 ng/mL 0-5.0 11/06/2017 10:12am 11/06/2017 11: 48am Troponin I 0.002 ng/mL 0-0.300 11/06/2017 10:12am 11/06/2017 11:48am Free Thyroxine 1.01 ng/dL 0.9-1.8 11/07/2017 3:00am 11/07/2017 3:55am Thyroid Stimulating Hormone (TSH) 0.689 uIU/mL 0.350-4.940 11/07/2017 3: 00am 11/07/2017 3:55am Microbiology Results Procedure Source Organism/Result Collection Date/Time Result Date/Time Result Status Urine Culture Urine,Random ESCHERICHIA COLI 11/06/2017 12:15pm 11/08/2017 6:42am Final Procedures No procedure information available. Encounters Encounter Location Arrival/Admit Date Discharge/Depart Date Attending Provider Discharged Inpatient [facility] 11/06/17 12:23pm 6:27pm AMY MCLEOD MD
== END 2018-01-07 17:37 | disposition home or self-care (01) ==
LOC: ER 13:30
DX: M79.605 Pain in left leg (principal); I87.1 Compression of vein; I87.2 Venous insufficiency (chronic) (peripheral); I10 Essential (primary) hypertension
CPT/HCPCS: 36415; 80053; 85025; 85610; 85730; 93005; 93971; 99284; J2270; J2405